=== PATIENT | female | born 1940 | race Caucasian/White ===

== ENCOUNTER 2020-04-08 11:51 | Emergency (ER) | payer MEDICARE, SELFPAY ==
[2020-04-08 11:53] VITALS: BP 194/103; PULSE 79; RESP 18; TEMP 36.4; O2SAT 95; BMI 27.7
--- NOTE | 2020-04-08 12:03 | VDLE_ITS ---
Reason For Study: LLE pain RIGHT LEFT CFV is compressible, spontaneous, phasic, CFV is compressible, spontaneous, phasic, competent and demonstrates normal competent, and demonstrates normal augmentation. augmentation. Procedure GSV is normal. Exam performed portable in ED. FV is compressible, spontaneous, phasic, The exam was diagnostic. competent and demonstrates normal A preliminary report was called and/or faxed augmentation. to Dr. Thompson @ 1:00 pm. POP V is compressible, spontaneous, phasic, competent and demonstrates normal augmentation. T/P Trunk is compressible. PTV is compressible. LT PerV is compressible. Interpretation Summary There is no evidence of left lower extremity deep vein thrombosis. Left great saphenous vein appears patent and compressible segmentally. Normal flow patterns right common femoral vein Ordering Physician: Eliana Thompson Referring Physician: OTD Performed By: Silvia Cornejo, ZACH, RVT
--- NOTE | 2020-04-08 12:05 | ED.DCSUM_ITS ---
History of Present Illness Chief Complaint: Other, Pain/Inj Detail of Chief Complaint: Left thigh pain Informant: Patient Onset: Today Current Severity: Mild Maximum Severity: Moderate Narrative: Patient present secondary to medial left thigh pain. She noted this morning upon waking. She denies any recent injury or change in activity. No noted leg swelling. No paresthesias. Patient has no known risk factors for blood clot but this is her primary concern. She denies chest pain or shortness of breath. - Past Medical History (1) Hypertension Status: Chronic Past Medical History - Allergies and Home Meds Allergies/Adverse Reactions: Allergies No Known Allergies Allergy (Verified 04/08/20 11:55) Primary Care Physician: [facility] Doctor,Out of [NON-STAFF] - Lives: Alone Review of Systems General: Denies: Chills, Fever Eyes: Denies: Visual changes - bilaterally ENT: Denies: Bilateral ear pain Cardiovascular: Denies: Chest pain Respiratory: Denies: Dyspnea Gastrointestinal: Denies: Abdominal pain, Nausea, Vomiting, Diarrhea Genitourinary: Denies: Dysuria Musculoskeletal: Reports: Extremity Pain. Denies: Swelling Skin: Denies: Rash Neurological: Denies: Headache, Parasthesia, Numbness Hematologic: Denies: Easy bruising, Easy bleeding Allergy: Denies: Uticaria Physical Exam Vital Signs/Narrative: Vital Signs Temp Pulse Resp BP Pulse Ox 04/08/20 11:53 97.5 F L 79 18 194/103 H 95 Inital Vital Signs reviewed: Yes General: Well nourished, Well developed Head: Normocephalic ENT: Moist mucous membranes Neck: Supple Cardiovascular: Regular rate, Regular rhythm Respiratory: No distress Abdomen: Soft Extremities: - - Tenderness palpation on the medial distal left thigh. No overlying skin change. Skin: Normal color Neurological: Alert, Oriented x3, Normal Strength, Normal Sensation, - - Strong distal pulses. Psychological: Normal affect Diagnostic/Tx/Re-eval - Medical Decision Making Venous ultrasound is obtained and shows no evidence of DVT. Patient does raise concern about her blood pressure. She takes atenolol daily. Blood pressure is repeated and systolic pressure is still 193. She will be given a dose of clonidine 0.1 mg p.o. She will be encouraged to check her blood sugars regularly. Patient states she lives in [place] but is here through at least the end of May. She will be referred to a local primary care physician. ED Disposition - Plan for ED Patient: Disposition: Home or Assisted Living Diagnosis: Muscle strain, lower leg Instructions: ED Strain Muscle Ext Prescriptions: cycloBENZAPRine HCl [Flexeril] 10 mg PO TID PRN #20 tablet PRN Reason: Muscle Spasm Referrals: Saroj Fam MD [STAFF PHYSICIAN] - As soon as possible
[2020-04-08 13:55] VITALS: BP 180/88; PULSE 80; RESP 18; O2SAT 98
== END 2020-04-08 13:56 | disposition home or self-care (01) ==
PROVIDERS: Emergency Provider Emergency Medicine
DX: S76.912A Strain of unspecified muscles, fascia and tendons at thigh level, left thigh, initial encounter (principal); X58.XXXA Exposure to other specified factors, initial encounter; Y93.9 Activity, unspecified; Y92.9 Unspecified place or not applicable
CPT/HCPCS: 93971; 99283